=== PATIENT | male | born 1980 | race African-American/Black ===

== ENCOUNTER 2019-10-16 14:59 | Inpatient (IN) ==
[2019-10-16] MEDS ORDERED: ALBUTEROL/IPRATROPIUM 3 ML NEB RESP TX STA (16:02)
[2019-10-16 16:13] LABS: Basophils # 0.1 10*3/uL (0.0-0.2); Basophils % 0.6 % (0.0-0.8); Eosinophils # 0.2 10*3/uL (0.0-0.87); Eosinophils % 1.8 % (0.00-10.9); Hematocrit 43.6 VOL% (42.0-52.0); Immature Granulocytes % 0.5 %; Immature Granulocytes Absolute 0.05 #; Lymphocytes # 2.1 10*3/uL (1.4-4.0); Mean Corpuscular HGB Conc 29.8 GM/DL (32-36); Mean Corpuscular Volume 89.2 FL (87-102); Mean Platelet Volume 11.2 FL (9.6-12.0); Monocytes % 8.8 % (1.7-12.7); Neutrophils % 68.3 % (38.7-73.9); Platelet Count 272 T/CUMM (130-400); Red Blood Count 4.89 MC/CUMM (3.8-5.5); Red Cell Distribution Width 15.8 % (9.3-17.3); White Blood Count 10.3 T/CUMM (4-12)
[2019-10-16 16:22] LABS: PT Patient Result 10.7 SECS (9.6-12.2); Partial Thromboplastin Time 29.1 SECS (20.8-36.0)
[2019-10-16 16:27] LABS: Alanine Aminotransferase 15 U/L (16-61); Albumin 3.1 G/DL (3.4-5.0); Alkaline Phosphatase 76 U/L (45-117); Aspartate Amino Transferase 11 U/L (0-37); Blood Urea Nitrogen 11 MG/DL (7-18); Calcium 8.6 MG/DL (8.5-10.1); Estimated Glom Filtration Rate 193 ML/MIN; Glucose 95 MG/DL (74-106); Osmolality,Calculated 277.4 MOS/KG (273-304); Total Protein 7.5 G/DL (6.4-8.3)
[2019-10-16 16:29] LABS: Troponin I 0.074 NG/ML (0.00-0.045)
[2019-10-16] MEDS ORDERED: FUROSEMIDE 40 MG/4 ML VIAL IV STA (16:51)
[2019-10-16 17:55] LABS: Barbiturates Screen,Urine Negative (Negative); Benzodiazepines Screen,Urine Negative (Negative); Cannabinoid Screen,Urine Negative (Negative); Opiate Screen,Urine Negative (Negative); Phencyclidine Screen,Urine Negative (Negative)
[2019-10-16 17:58] LABS: Apearance,Urine CLEAR (Clear); Bilirubin,Urine Negative (Negative); Blood, Urine Negative (Negative); Glucose,Urine (UA) Negative (Negative); Ketones,Urine Negative (Negative); Mucus,Urine Occasional /LPF (Occasional); Nitrite,Urine Negative (Negative); Protein,Urine Negative; RBC,Urine 5 /HPF (0-4); Squamous Epithelial Cell,Urine Occasional /HPF (0-10); Urine Color Yellow (Yellow); Urine Specific Gravity 1.023 (1.001-1.035); Urine Urobilinogen < 2.0 EU/DL (0.2-1.0); WBC,Urine <1 /HPF (0-6)
[2019-10-16] MEDS ORDERED: MAGNESIUM SULF RIDER 4 GM in PREMIX 1 EACH IV PRN (18:20)
[2019-10-16] MEDS ORDERED: MAGNESIUM SULF RIDER 2 GM in PREMIX 1 EACH IV PRN (18:20)
[2019-10-16] MEDS ORDERED: ONDANSETRON 4 MG/2 ML VIAL IV PRN (18:20)
[2019-10-16] MEDS: FUROSEMIDE 40 MG/4 ML VIAL IV SCH (21:36)
[2019-10-16] MEDS: hydrALAZINE 25 MG TABLET PO SCH (21:36)
[2019-10-16] MEDS: ISOSORBIDE DINITRATE 20 MG TABLET PO SCH (21:36)
[2019-10-16 21:57] LABS: Troponin I 0.063 NG/ML (0.00-0.045)
[2019-10-17 01:18] LABS: Basophils # 0.1 10*3/uL (0.0-0.2); Basophils % 0.7 % (0.0-0.8); Eosinophils # 0.2 10*3/uL (0.0-0.87); Eosinophils % 1.8 % (0.00-10.9); Hematocrit 41.2 VOL% (42.0-52.0); Hemoglobin 12.5 GM/DL (14.0-18.0); Immature Granulocytes % 0.7 %; Immature Granulocytes Absolute 0.08 #; Lymphocytes # 2.3 10*3/uL (1.4-4.0); Lymphocytes % 19.2 % (21.2-54.2); Mean Corpuscular HGB Conc 30.3 GM/DL (32-36); Mean Corpuscular Volume 87.5 FL (87-102); Mean Platelet Volume 11.3 FL (9.6-12.0); Monocytes % 10.8 % (1.7-12.7); Neutrophils % 66.8 % (38.7-73.9); Platelet Count 295 T/CUMM (130-400); Red Blood Count 4.71 MC/CUMM (3.8-5.5); Red Cell Distribution Width 15.6 % (9.3-17.3); White Blood Count 12.1 T/CUMM (4-12)
[2019-10-17 01:38] LABS: Albumin 3.2 G/DL (3.4-5.0); Calcium 8.5 MG/DL (8.5-10.1); Osmolality,Calculated 281.1 MOS/KG (273-304); Risk Ratio 4.7; Thyroid Stimulating Hormone 1.92 uIU/ml (0.358-3.74); Total Protein 7.1 G/DL (6.4-8.3)
[2019-10-17 01:53] LABS: Troponin I 0.049 NG/ML (0.00-0.045)
[2019-10-17] MEDS ORDERED: ACETAMINOPHEN 325 MG TABLET PO PRN (03:08)
[2019-10-17] MEDS: ISOSORBIDE DINITRATE 20 MG TABLET PO SCH ×2 (05:50→17:31)
[2019-10-17] MEDS: carvediloL 25 MG TABLET PO SCH ×2 (05:50→13:57)
[2019-10-17] MEDS: hydrALAZINE 25 MG TABLET PO SCH ×3 (05:50→22:04)
[2019-10-17] MEDS: PANTOPRAZOLE 40 MG TABLET PO SCH (10:08)
[2019-10-17] MEDS: FUROSEMIDE 40 MG/4 ML VIAL IV SCH ×2 (10:11→17:33)
[2019-10-17] MEDS: ENOXAPARIN 40 MG/0.4 ML SYRINGE SUBCUT SCH (17:33)
[2019-10-17] MEDS: SPIRONOLACTONE 25 MG TABLET PO SCH (22:04)
[2019-10-18] MEDS: FUROSEMIDE 40 MG/4 ML VIAL IV SCH ×4 (00:44→23:35)
[2019-10-18] MEDS: hydrALAZINE 25 MG TABLET PO SCH ×3 (03:16→21:00)
[2019-10-18] MEDS: carvediloL 25 MG TABLET PO SCH ×2 (03:16→11:26)
[2019-10-18 04:53] LABS: Basophils # 0.1 10*3/uL (0.0-0.2); Basophils % 0.7 % (0.0-0.8); Eosinophils # 0.2 10*3/uL (0.0-0.87); Eosinophils % 1.6 % (0.00-10.9); Hematocrit 41.4 VOL% (42.0-52.0); Hemoglobin 12.5 GM/DL (14.0-18.0); Immature Granulocytes % 0.5 %; Immature Granulocytes Absolute 0.06 #; Lymphocytes # 2.5 10*3/uL (1.4-4.0); Lymphocytes % 21.5 % (21.2-54.2); Mean Corpuscular HGB Conc 30.2 GM/DL (32-36); Mean Corpuscular Volume 87.2 FL (87-102); Mean Platelet Volume 10.9 FL (9.6-12.0); Monocytes % 10.7 % (1.7-12.7); Platelet Count 287 T/CUMM (130-400); Red Blood Count 4.75 MC/CUMM (3.8-5.5); Red Cell Distribution Width 15.7 % (9.3-17.3); White Blood Count 11.5 T/CUMM (4-12)
[2019-10-18 05:44] LABS: Albumin 3.1 G/DL (3.4-5.0); Bilirubin,Total 0.8 MG/DL (0.2-1.0); Calcium 8.5 MG/DL (8.5-10.1); Osmolality,Calculated 277.5 MOS/KG (273-304); Total Protein 7.5 G/DL (6.4-8.3)
[2019-10-18] MEDS: POTASSIUM CHLORIDE 20 MEQ TABLET PO PRN ×2 (07:31→09:05)
[2019-10-18] MEDS: LOSARTAN 25 MG TABLET PO SCH (09:04)
[2019-10-18] MEDS: SPIRONOLACTONE 25 MG TABLET PO SCH ×2 (09:04→21:00)
[2019-10-18] MEDS: PANTOPRAZOLE 40 MG TABLET PO SCH (09:05)
[2019-10-18] MEDS: ENOXAPARIN 40 MG/0.4 ML SYRINGE SUBCUT SCH (15:07)
[2019-10-18] MEDS: POTASSIUM CHLORIDE 20 MEQ TABLET PO SCH ×2 (15:07→21:00)
[2019-10-19] MEDS: hydrALAZINE 25 MG TABLET PO SCH (04:48)
[2019-10-19] MEDS: carvediloL 25 MG TABLET PO SCH (04:48)
[2019-10-19 05:05] LABS: Basophils # 0.1 10*3/uL (0.0-0.2); Basophils % 0.5 % (0.0-0.8); Eosinophils # 0.2 10*3/uL (0.0-0.87); Eosinophils % 1.4 % (0.00-10.9); Hematocrit 41.2 VOL% (42.0-52.0); Hemoglobin 12.5 GM/DL (14.0-18.0); Immature Granulocytes % 0.4 %; Immature Granulocytes Absolute 0.05 #; Lymphocytes # 2.7 10*3/uL (1.4-4.0); Lymphocytes % 23.2 % (21.2-54.2); Mean Corpuscular HGB Conc 30.3 GM/DL (32-36); Mean Corpuscular Volume 85.8 FL (87-102); Mean Platelet Volume 10.7 FL (9.6-12.0); Monocytes % 11.3 % (1.7-12.7); Neutrophils % 63.2 % (38.7-73.9); Platelet Count 281 T/CUMM (130-400); Red Cell Distribution Width 15.7 % (9.3-17.3); White Blood Count 11.5 T/CUMM (4-12)
[2019-10-19 05:33] LABS: Bilirubin,Total 0.6 MG/DL (0.2-1.0); Calcium 8.6 MG/DL (8.5-10.1); Osmolality,Calculated 277.5 MOS/KG (273-304); Total Protein 7.5 G/DL (6.4-8.3)
[2019-10-19] MEDS: POTASSIUM CHLORIDE 20 MEQ TABLET PO PRN (06:28)
[2019-10-19] MEDS: PANTOPRAZOLE 40 MG TABLET PO SCH (08:48)
[2019-10-19] MEDS: LOSARTAN 25 MG TABLET PO SCH (08:48)
[2019-10-19] MEDS: POTASSIUM CHLORIDE 20 MEQ TABLET PO SCH (08:48)
[2019-10-19] MEDS: SPIRONOLACTONE 25 MG TABLET PO SCH (08:48)
[2019-10-19] MEDS ORDERED: FLUTICASONE 50 MCG NASAL SPRAY 16 GM BOTTLE BOTH NARES SCH (09:00)
[2019-10-19] MEDS: FUROSEMIDE 40 MG/4 ML VIAL IV SCH (10:08)
[2019-10-19 11:58] VITALS: BP 143/87
== END 2019-10-19 12:45 | disposition home or self-care (01) | DRG 291 ==
LOC: N.ED 14:59 → N.EDINP 18:20 → SUPCPDRO 18:20 → N.TELES 19:23
PROVIDERS: ADMIT Internal Medicine; ATTEND Internal Medicine